=== PATIENT | female | born 1950 ===

== ENCOUNTER 2018-01-07 11:21 | Day surgery (SDC) | payer MEDICARE, MEDICAID ==
[~2018-01-07] VITALS: Ht 170.2 cm; Wt 78.0 kg
[2018-01-07] MEDS ORDERED: GABA300C10 PO (12:40)
[2018-01-07] MEDS ORDERED: ATOR40TA78 PO (12:40)
[2018-01-07] MEDS ORDERED: OMEP-110 PO (12:40)
[2018-01-07] MEDS ORDERED: METO50TA82 PO (12:40)
[2018-01-07] MEDS ORDERED: DILT240C61 PO (12:40)
[2018-01-07] MEDS ORDERED: SERT50TA5 PO (12:40)
[2018-01-07] MEDS ORDERED: HYDR25TA11 PO (12:40)
[2018-01-07] MEDS ORDERED: FENO160T PO (12:40)
[2018-01-07] MEDS ORDERED: APRE30TA2 PO (12:41)
[2018-01-07] MEDS ORDERED: MELO15TA24 PO (12:41)
[2018-01-07] MEDS ORDERED: CALC0.5C9 PO (12:41)
[2018-01-07] MEDS ORDERED: LISI30TA4 PO (12:41)
[2018-01-07] MEDS ORDERED: SODIUM CHLORIDE 0.9% 1,000 ML IV SCH (12:42)
[2018-01-07 12:45] VITALS: BP 177/72
[2018-01-07] MEDS ORDERED: INSU100I34 SQ (13:14)
[2018-01-07] MEDS ORDERED: INSU100V8 SQ (13:14)
[2018-01-07] MEDS ORDERED: INSULIN SINGLE DOSE, ER SQ-INSULIN ONE (13:28)
[2018-01-07] MEDS ORDERED: INSULIN REGULAR 100 UNITS/ML, 3ML VIAL SQ-INSULIN ONE (13:30)
[2018-01-07] MEDS ORDERED: HEPARIN 5,000 UNITS/ML, 1ML ONE (14:06)
[2018-01-07] MEDS ORDERED: FENTANYL PF 100 MCG/2ML ONE (14:13)
[2018-01-07] MEDS ORDERED: MIDAZOLAM 1 MG/ML, 2ML ONE (14:13)
[2018-01-07] MEDS ORDERED: DEXAMETHASONE 4 MG/ML, 1ML ONE (14:20)
[2018-01-07] MEDS ORDERED: PROPOFOL 10 MG/ML, 20ML ONE (14:20)
[2018-01-07] MEDS ORDERED: CEFAZOLIN 1,000 MG ONE (14:20)
[2018-01-07] MEDS ORDERED: ROCURONIUM 10 MG/ML,10ML ONE (14:20)
[2018-01-07] MEDS ORDERED: ONDANSETRON 2MG/ML, 2ML ONE (14:20)
[2018-01-07] MEDS ORDERED: HALOPERIDOL 5 MG/ML IV PRN (15:00)
[2018-01-07] MEDS ORDERED: LABETALOL 5MG/ML, 20ML IV PRN (15:00)
[2018-01-07] MEDS ORDERED: FENTANYL PF 100 MCG/2ML IV PRN (15:00)
[2018-01-07] MEDS ORDERED: hydrALAzine 20 MG/ML, 1ML IV PRN (15:00)
[2018-01-07] MEDS ORDERED: HYDROmorphone 1 MG/ML, 1ML IV PRN (15:00)
[2018-01-07] MEDS ORDERED: ACETAMINOPHEN 325 MG TABLET PO PRN (15:00)
[2018-01-07] MEDS ORDERED: PROMETHAZINE 25 MG/ML, 1ML IV PRN (15:00)
[2018-01-07] MEDS ORDERED: MEPERIDINE/PF 25MG/0.5ML IVPush PRN (15:00)
[2018-01-07] MEDS ORDERED: ACETAMINOPHEN 650 MG/20.3 ML UDC ONE (15:36)
== END 2018-01-07 16:30 | disposition home or self-care (01) ==
LOC: OUT 11:21
PROVIDERS: ATTEND Surgery Vascular Surgery
DX: E11.22 Type 2 diabetes mellitus with diabetic chronic kidney disease (principal); I12.0 Hypertensive chronic kidney disease with stage 5 chronic kidney disease or end stage renal disease; N18.6 End stage renal disease; K21.9 Gastro-esophageal reflux disease without esophagitis; Z88.5 Allergy status to narcotic agent
CPT/HCPCS: 36415; 36821; 80047; 82962; 93005; J0690; J1100; J1644; J2250; J2405; J2704; J3010; J7030